=== PATIENT | male | born 1985 | race Caucasian/White ===

== ENCOUNTER 2019-07-23 10:40 | Emergency (ER) | payer SELFPAY ==
--- NOTE | 2019-07-23 12:00 | ED ---
Psychiatric Complaint - HPI Summary HPI Summary: This pt is a 34 y/o male presenting to [facility] via EMS from [facility] for depression. Pt reports he was at the [facility] building and the lady there was asking him a lot of questions regarding his family. He notes it was depressing and made statements about not wanting to live. He states the lack of family is what was depressing. Denies thoughts of SI however reports "just wanting the pain to go away." Pt has been admitted for mental health in the past several years ago. He notes he might benefit from admission today. Pt is a housekeeper. He graduated from high school when he was 17 y/o. He admits to marijuana use and the last time he used was today. - History Of Current Complaint Chief Complaint: EDMentalHealth Hx Obtained From: Patient Onset/Duration: Gradual Onset, Still Present Timing: Constant Severity Currently: Moderate Character: Depressed Aggravating Factor(s): Recent Stress Alleviating Factor(s): Nothing Related History: Positive For: Prior Psychiatric Issues Has Suicidal: Denies: Thoughts, With A Plan Has Homicidal: Denies: Thoughts, With A Plan Recent Stressor(s): getting asked questions about his family - Allergies/Home Medications Allergies/Adverse Reactions: Allergies Allergy/AdvReac Type Severity Reaction Status Date / Time No Known Allergies Allergy Verified 07/23/19 10:50 Home Medications: Home Medications NK [No Home Medications Reported] 07/23/19 [History Confirmed 07/23/19] PMH/Surg Hx/FS Hx/Imm Hx GI History: Reports: Hx Gall Bladder Disease - removed in 2006 Psychiatric History: Reports: Hx Inpatient Treatment, Hx Community Mental Health Tx, Hx Schizophrenia - R/O, Hx Bipolar Disorder - R/O, Hx of Violent Episodes Against Others, Hx Substance Abuse, Other Psychiatric Issues/Disorders Denies: Hx Eating Disorder - Surgical History Surgical History: Yes Surgery Procedure, Year, and Place: gall bladder removed (2006). 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, remembering he was 2-6 years old) Infectious Disease History: No Infectious Disease History: Reports: Hx Tuberculosis - has had positive PPD tests but negative xray Denies: Traveled Outside the [place] in Last 30 Days - Family History Known Family History: Negative: Cardiac Disease - Social History Alcohol Use: Weekly Alcohol Amount: reports "2-4 drinks 3-4 days/week" Substance Use Type: Reports: Marijuana Substance Use Comment - Amount & Last Used: marijuana daily Smoking Status (MU): Current Every Day Smoker Review of Systems Negative: Fever, Chills Negative: Erythema Negative: Sore Throat Negative: Chest Pain Negative: Shortness Of Breath, Cough Negative: Abdominal Pain, Vomiting, Nausea Negative: dysuria, hematuria Negative: Myalgia, Edema Negative: Rash Neurological: Other - NEGATIVE: dizziness Psychological: Other - POSITIVE: SI Positive: Depressed All Other Systems Reviewed And Are Negative: Yes Physical Exam - Summary Physical Exam Summary: Constitutional: Well-developed, Well-nourished, Alert. (-) Distressed Skin: Warm, Dry HENT: Normocephalic; Atraumatic Eyes: Conjunctiva normal Neck: Musculoskeletal ROM normal neck. (-) JVD, (-) Stridor, (-) Tracheal deviation Cardio: Rhythm regular, rate normal, Heart sounds normal; Intact distal pulses; The pedal pulses are 2+ and symmetric. Radial pulses are 2+ and symmetric. (-) Murmur Pulmonary/Chest wall: Effort normal. (-) Respiratory distress, (-) Wheezes, (-) Rales Abd: Soft, (-) Tenderness, (-) Distension, (-) Guarding, (-) Rebound Musculoskeletal: (-) Edema Lymph: (-) Cervical adenopathy Neuro: Alert, Oriented x3 Psych: Tearful Triage Information Reviewed: Yes Vital Signs On Initial Exam: Initial Vitals Temp Pulse Resp BP Pulse Ox 98.2 F 70 18 153/120 98 07/23/19 10:45 07/23/19 10:45 07/23/19 10:45 07/23/19 10:45 07/23/19 10:45 Vital Signs Reviewed: Yes Procedures - Sedation Patient Received Moderate/Deep Sedation with Procedure: No Diagnostics - Vital Signs Vital Signs Temp Pulse Resp BP Pulse Ox 07/23/19 10:45 98.2 F 70 18 153/120 98 - Laboratory Result Diagrams: 07/23/19 11:58 07/23/19 11:58 Lab Statement: Any lab studies that have been ordered have been reviewed, and results considered in the medical decision making process. Course/Dx - Course Assessment/Plan: Pt is a 34 y/o male presenting to [facility] via EMS from [facility] for depression. Pt reports he was at the [facility] building and the lady there was asking him a lot of questions regarding his family. He notes it was depressing and made statements about not wanting to live. He states the lack of family is what was depressing. Denies thoughts of SI however reports "just wanting the pain to go away.". Pt was medically cleared. He had a mental health evaluation and his case was reviewed by Dr. Ferrara, psychiatrist. Dr. Ferrara cleared the pt for discharge with outpatient follow up at [facility]. - Differential Dx/Clinical Impression Provider Diagnosis: Anxiety, Bipolar disorder Discharge ED - Sign-Out/Discharge Documenting (check all that apply): Patient Departure - Discharge home - Discharge Plan Condition: Stable Disposition: HOME Patient Education Materials: Bipolar Disorder (ED), Generalized Anxiety Disorder (ED), Cannabis Abuse (ED) Referrals: No Primary Care Phys,NOPCP [Primary Care Provider] - - Attestation Statements Document Initiated by Scribe: Yes Documenting Scribe: Marybeth Ponce Provider For Whom Scribe is Documenting (Include Credential): Maximo Martinez MD Scribe Attestation: Marybeth Ni, scribed for Maximo Martinez MD on 07/23/19 at 1520. Status of Scribe Document: Ready
[2019-07-23 12:07] LABS: ABS Eosinophils 0.1 10^3/ul (0-0.6); ABS Lymphocytes 1.9 10^3/ul (1.0-4.8); ABS Monocytes 0.5 10^3/ul (0-0.8); ABS Neutrophils 4.8 10^3/ul (1.5-7.7); Eosinophil % 0.8 %; Hematocrit 46 % (42-52); Hemoglobin 15.7 g/dL (14.0-18.0); Lymphocyte % 25.4 %; Mean Corpuscular HGB Conc 34 g/dL (31-36); Mean Corpuscular Hemoglobin 31 pg (27-31); Mean Corpuscular Volume 90 fL (80-94); Mean Platelet Volume 7.2 fL (7.4-10.4); Nucleated Red Blood Cells % 0.1; Platelet Count 262 10^3/uL (150-450); Red Blood Count 5.08 10^6 /uL (4.18-5.48); Red Cell Distribution Width 13 % (10-15); White Blood Count 7.3 10^3/uL (3.5-10.8)
[2019-07-23 12:14] LABS: Urine Appearance Clear; Urine Bacteria Absent (Absent); Urine Bilirubin Negative (Negative); Urine Blood Negative (Negative); Urine Color Yellow; Urine Glucose Negative (Negative); Urine Ketones Negative (Negative); Urine Nitrite Negative (Negative); Urine Protein 1+(30 mg/dL) (Negative); Urine Red Blood Cell Trace(0-2/hpf) (Absent); Urine Specific Gravity 1.023 (1.010-1.030); Urine Urobilinogen Negative (Negative); Urine White Blood Cell Trace(0-5/hpf) (Absent)
[2019-07-23 12:28] LABS: ALT 21 U/L (7-52); AST 20 U/L (13-39); Albumin 4.5 g/dL (3.2-5.2); Albumin/Globulin Ratio 1.8 (1-3); Alkaline Phosphatase 100 U/L (34-104); Anion Gap 6 mmol/L (2-11); BUN/Creatinine Ratio 13.3 (8-20); Blood Urea Nitrogen 11 mg/dL (6-24); CO2 Carbon Dioxide 27 mmol/L (22-32); Calcium 9.3 mg/dL (8.6-10.3); Chloride 106 mmol/L (101-111); EGFR African American 129.1 (>60); EGFR Non-African American 106.7 (>60); Globulin 2.5 g/dL (2-4); Glucose 137 mg/dL (70-100); Potassium 4.4 mmol/L (3.5-5.0); Sodium 139 mmol/L (135-145)
[2019-07-23 12:31] LABS: Urine Benzodiazepine Screen None Detected (None Detect); Urine Opiates Screen None Detected (None Detect)
[2019-07-23 12:46] LABS: Acetaminophen < 15 mcg/mL; Alcohol < 10 mg/dL (<10); Salicylate < 2.50 mg/dL (<30)
[2019-07-23 12:58] LABS: TSH (Thyroid Stimulating Horm) 0.83 mcIU/mL (0.34-5.60)
[2019-07-23 15:22] VITALS: BP 144/97
== END 2019-07-23 16:00 | disposition home or self-care (01) ==
LOC: ED 10:40
DX: F41.9 Anxiety disorder, unspecified (principal); F31.9 Bipolar disorder, unspecified; F17.210 Nicotine dependence, cigarettes, uncomplicated
CPT/HCPCS: 36415; 80053; 80307; 80320; 80329; 81003; 81015; 84443; 85025; 87086; 99284; G0480

== ENCOUNTER 2022-11-04 13:29 | Inpatient (IN) ==
[2022-11-04 14:11] LABS: ABS Lymphocytes 2.4 10^3/ul (1.0-4.8); ABS Monocytes 0.5 10^3/ul (0-0.8); ABS Neutrophils 4.1 10^3/ul (1.5-7.7); Eosinophil % 0.3 %; Hematocrit 45 % (42-52); Hemoglobin 15.4 g/dL (14.0-18.0); Lymphocyte % 34.2 %; Mean Corpuscular HGB Conc 34 g/dL (31-36); Mean Corpuscular Hemoglobin 32 pg (27-31); Mean Corpuscular Volume 92 fL (80-94); Mean Platelet Volume 7.3 fL (7.4-10.4); Nucleated Red Blood Cells % 0.1; Platelet Count 272 10^3/uL (150-450); Red Cell Distribution Width 14 % (10-15); White Blood Count 7.1 10^3/uL (3.5-10.8)
[2022-11-04 14:59] LABS: TSH Ultra Thyroid Stim Horm 1.17 mcIU/mL (0.34-5.60)
[2022-11-04 15:02] LABS: ALT 35 U/L (7-52); AST 33 U/L (13-39); Acetaminophen < 15 mcg/mL; Albumin 4.4 g/dL (3.2-5.2); Albumin/Globulin Ratio 1.6 (1-3); Alcohol, S 136 mg/dL (<13); Alkaline Phosphatase 120 U/L (35-149); Anion Gap 11 mmol/L (2-11); Blood Urea Nitrogen 11 mg/dL (6-24); CO2 Carbon Dioxide 23 mmol/L (22-32); Calcium 9.1 mg/dL (8.6-10.3); Chloride 105 mmol/L (101-111); Creatinine, Serum 0.88 mg/dL (0.67-1.17); Globulin 2.8 g/dL (2-4); Glucose 128 mg/dL (70-100); Potassium 3.8 mmol/L (3.5-5.0); Salicylate < 2.50 mg/dL (<30); Sodium 139 mmol/L (135-145); Total Protein 7.2 g/dL (6.4-8.9); eGFR CKD-EPI 114.3 (>60)
[2022-11-04 17:15] LABS: Urine Benzodiazepine Screen None Detected (None Detect); Urine Cannabinoids Screen Presumptive Positive (None Detect); Urine Opiates Screen None Detected (None Detect)
[2022-11-04] MEDS ORDERED: Haloperidol 5 mg/ml SDV IV/IM 5 MG/ML AMP ONE (18:58)
[2022-11-04] MEDS ORDERED: LORazepam 2 mg VIAL 1 ml ONE (18:58)
[2022-11-04] MEDS ORDERED: LORazepam 2 mg VIAL 1 ml IM ONE (19:08)
[2022-11-04] MEDS ORDERED: Haloperidol 5 mg/ml SDV IV/IM 5 MG/ML AMP IM ONE (19:08)
[2022-11-04] MEDS ORDERED: Lorazepam PYXIS KEY PRN (19:08)
[2022-11-04] MEDS ORDERED: Al Hydrox/Mg Hydrox/Simet LIQ 30 ML UDC PO PRN (20:11)
[2022-11-04] MEDS ORDERED: OLANZapine 5 mg TAB *ODT PO PRN (20:13)
[2022-11-05] MEDS: Nicotine PATCH 21 MG/24 HR PATCH TRANSDERM SCH (10:03)
[2022-11-05] MEDS: Vitamin THERAPEUTIC TAB PO SCH (10:28)
[2022-11-05] MEDS: Vitamin THERAPEUTIC TAB PO ONE ×2 (13:15→14:05)
[2022-11-05] MEDS ORDERED: Nicotine PATCH 21 MG/24 HR PATCH TRANSDERM ONE (14:00)
[2022-11-06] MEDS: Vitamin THERAPEUTIC TAB PO SCH (09:08)
[2022-11-06] MEDS: Nicotine PATCH 21 MG/24 HR PATCH TRANSDERM SCH (09:08)
[2022-11-06] MEDS: Nicotine GUM 2MG FRUIT FLAVOR PO PRN ×4 (09:09→22:35)
[2022-11-07 08:31] LABS: HDL Cholesterol 49.7 mg/dL
[2022-11-07] MEDS: Nicotine PATCH 21 MG/24 HR PATCH TRANSDERM SCH (08:49)
[2022-11-07] MEDS: Nicotine GUM 2MG FRUIT FLAVOR PO PRN ×5 (08:50→20:41)
[2022-11-07] MEDS: Vitamin THERAPEUTIC TAB PO SCH (08:50)
[2022-11-07 23:18] VITALS: BP 142/108
[2022-11-08] MEDS: Vitamin THERAPEUTIC TAB PO SCH (09:07)
[2022-11-08] MEDS: Nicotine PATCH 21 MG/24 HR PATCH TRANSDERM SCH (09:08)
[2022-11-08] MEDS: Nicotine GUM 2MG FRUIT FLAVOR PO PRN (10:06)
[2022-11-09] MEDS: Vitamin THERAPEUTIC TAB PO SCH (08:27)
[2022-11-09] MEDS: Nicotine GUM 2MG FRUIT FLAVOR PO PRN ×2 (08:27→10:51)
[2022-11-09] MEDS: Nicotine PATCH 21 MG/24 HR PATCH TRANSDERM SCH (10:10)
== END 2022-11-09 13:39 | disposition home or self-care (01) | DRG 750 ==
LOC: ED 13:29 → EDHOLD 20:12 → BSU 20:49
PROVIDERS: ADMIT Psychiatry & Neurology Psychiatry; ATTEND Psychiatry & Neurology Psychiatry

== ENCOUNTER 2023-05-04 13:13 | Inpatient (IN) ==
[2023-05-04 14:20] LABS: ABS Eosinophils 0.1 10^3/uL (0.0-0.5); ABS Lymphocytes 2.3 10^3/uL (1.0-4.8); ABS Monocytes 0.8 10^3/uL (0.0-1.1); ABS Nucleated RBC 0.01 10^3/ul; Eosinophil % 1.2 %; Hematocrit 42.1 % (38-53); Hemoglobin 14.6 g/dL (13.2-16.3); Lymphocyte % 28.4 %; Mean Corpuscular Hemoglobin 31.4 pg (27-33); Mean Corpuscular Hgb Conc 34.7 g/dL (31-36); Mean Corpuscular Volume 90.6 fL (80-97); Mean Platelet Volume 7.9 fL (7.5-11.2); Nucleated Red Blood Cells % 0.1 /100 WBC (0.0-0.4); Platelet Count 255 10^3/uL (150-450); Red Blood Count 4.64 10^6/uL (4.06-5.63); Red Cell Distribution Width 13.2 % (12-17); White Blood Count 8.3 10^3/uL (3.6-10.2)
[2023-05-04 14:59] LABS: ALT 20 U/L (7-52); AST 20 U/L (13-39); Albumin 4.1 g/dL (3.2-5.2); Albumin/Globulin Ratio 1.5 (1-3); Alkaline Phosphatase 86 U/L (35-149); Anion Gap 6 mmol/L (2-16); Blood Urea Nitrogen 16 mg/dL (6-24); CO2 Carbon Dioxide 27 mmol/L (22-32); Calcium 9.1 mg/dL (8.6-10.3); Chloride 107 mmol/L (101-111); Creatinine, Serum 0.92 mg/dL (0.67-1.17); Globulin 2.8 g/dL (2-4); Glucose 119 mg/dL (70-100); Potassium 3.9 mmol/L (3.5-5.0); Sodium 140 mmol/L (135-145); Total Protein 6.9 g/dL (6.4-8.9); eGFR CKD-EPI 109.9 (>60)
[2023-05-04 15:02] LABS: Acetaminophen < 15 mcg/mL; Alcohol, S < 13 mg/dL (<13); Salicylate < 2.50 mg/dL (<30)
[2023-05-04 15:07] LABS: TSH Ultra Thyroid Stim Horm 1.16 mcIU/mL (0.34-5.60)
[2023-05-04] MEDS ORDERED: Al Hydrox/Mg Hydrox/Simet LIQ 30 ML UDC PO PRN (22:17)
[2023-05-04] MEDS ORDERED: OLANZapine 10 mg TAB*ODT PO PRN (22:18)
[2023-05-04] MEDS ORDERED: Nicotine GUM 2MG FRUIT FLAVOR PO PRN (23:00)
[2023-05-05] MEDS: Nicotine PATCH 21 MG/24 HR PATCH TRANSDERM SCH (11:12)
[2023-05-05] MEDS: Vitamin THERAPEUTIC TAB PO SCH (11:12)
[2023-05-06 07:55] LABS: HDL Cholesterol 36.2 mg/dL
[2023-05-06] MEDS: Vitamin THERAPEUTIC TAB PO SCH (09:03)
[2023-05-06] MEDS: Nicotine PATCH 21 MG/24 HR PATCH TRANSDERM SCH (09:03)
[2023-05-07] MEDS: Vitamin THERAPEUTIC TAB PO SCH (11:59)
[2023-05-07] MEDS: Nicotine PATCH 21 MG/24 HR PATCH TRANSDERM SCH (11:59)
[2023-05-08] MEDS: Vitamin THERAPEUTIC TAB PO SCH (11:15)
[2023-05-08] MEDS: Nicotine PATCH 21 MG/24 HR PATCH TRANSDERM SCH (11:15)
[2023-05-09] MEDS: Nicotine PATCH 21 MG/24 HR PATCH TRANSDERM SCH (08:27)
[2023-05-09] MEDS: Vitamin THERAPEUTIC TAB PO SCH (08:28)
[2023-05-10] MEDS: Nicotine PATCH 21 MG/24 HR PATCH TRANSDERM SCH (08:36)
[2023-05-10] MEDS: Vitamin THERAPEUTIC TAB PO SCH (08:36)
[2023-05-11] MEDS: Nicotine PATCH 21 MG/24 HR PATCH TRANSDERM SCH (08:16)
[2023-05-11] MEDS: Vitamin THERAPEUTIC TAB PO SCH (08:16)
[2023-05-11 09:22] VITALS: BP 129/80
== END 2023-05-11 10:30 | disposition home or self-care (01) | DRG 750 ==
LOC: ED 13:13 → EDHOLD 21:56 → BSU 05-05 00:01
PROVIDERS: ADMIT Psychiatry & Neurology Psychiatry; ATTEND Psychiatry & Neurology Psychiatry

== ENCOUNTER 2023-06-08 12:28 | Inpatient (IN) ==
[2023-06-08] MEDS ORDERED: Al Hydrox/Mg Hydrox/Simet LIQ 30 ML UDC PO PRN (15:29)
[2023-06-08] MEDS ORDERED: Midazolam 5 mg/ml concentrated 5 mg/ml 1 ml VIAL INJ ONE (16:04)
[2023-06-08] MEDS ORDERED: Droperidol 5 MG/2 ML 2 ML VIAL IM ONE (16:21)
[2023-06-08 17:04] LABS: ABS Lymphocytes 1.5 10^3/uL (1.0-4.8); ABS Monocytes 0.4 10^3/uL (0.0-1.1); ABS Neutrophils 5.8 10^3/uL (1.5-7.6); ABS Nucleated RBC 0.01 10^3/ul; Eosinophil % 0.3 %; Hematocrit 43.7 % (38-53); Hemoglobin 15.3 g/dL (13.2-16.3); Mean Corpuscular Hemoglobin 31.3 pg (27-33); Mean Corpuscular Volume 89.4 fL (80-97); Mean Platelet Volume 7.4 fL (7.5-11.2); Nucleated Red Blood Cells % 0.1 /100 WBC (0.0-0.4); Platelet Count 266 10^3/uL (150-450); Red Blood Count 4.88 10^6/uL (4.06-5.63); Red Cell Distribution Width 13.5 % (12-17); White Blood Count 7.7 10^3/uL (3.6-10.2)
[2023-06-08 17:18] LABS: Albumin 4.4 g/dL (3.2-5.2); Anion Gap 3 mmol/L (2-16); CO2 Carbon Dioxide 28 mmol/L (22-32); Calcium 9.1 mg/dL (8.6-10.3); Chloride 107 mmol/L (101-111); Potassium 3.8 mmol/L (3.5-5.0); Sodium 138 mmol/L (135-145)
[2023-06-08 17:24] LABS: ALT 25 U/L (7-52); AST 25 U/L (13-39); Albumin/Globulin Ratio 1.7 (1-3); Alkaline Phosphatase 93 U/L (35-149); Blood Urea Nitrogen 14 mg/dL (6-24); Creatinine, Serum 0.77 mg/dL (0.67-1.17); Globulin 2.6 g/dL (2-4); Glucose 123 mg/dL (70-100); eGFR CKD-EPI 118.3 (>60)
[2023-06-08 17:39] LABS: Acetaminophen < 15 mcg/mL; Alcohol, S < 13 mg/dL (<13); Salicylate < 2.50 mg/dL (<30)
[2023-06-08 17:48] LABS: TSH Ultra Thyroid Stim Horm 0.65 mcIU/mL (0.34-5.60)
[2023-06-10] MEDS: OLANZapine 5 mg TAB *ODT PO SCH (20:48)
[2023-06-11] MEDS: OLANZapine 5 mg TAB *ODT PO SCH (21:37)
[2023-06-12] MEDS: OLANZapine 5 mg TAB *ODT PO SCH (21:55)
[2023-06-13] MEDS: OLANZapine 5 mg TAB *ODT PO SCH (20:26)
[2023-06-14] MEDS: OLANZapine 5 mg TAB *ODT PO SCH (20:11)
[2023-06-15] MEDS ORDERED: ARIPiprazole LAUROXIL INITIO 675 MG/2.4 ML SYRINGE IM ONE (14:22)
[2023-06-15] MEDS ORDERED: ARIPiprazole LAUROXIL 662 MG/2.4 ML SYRINGE IM ONE (14:22)
[2023-06-15] MEDS: Nicotine GUM 4MG FRUIT FLAVOR PO PRN (18:11)
[2023-06-17] MEDS: Nicotine GUM 4MG FRUIT FLAVOR PO PRN ×2 (08:56→17:41)
[2023-06-18] MEDS: Nicotine GUM 4MG FRUIT FLAVOR PO PRN (15:42)
[2023-06-19] MEDS: Nicotine GUM 4MG FRUIT FLAVOR PO PRN (17:24)
[2023-06-20] MEDS: Nicotine GUM 4MG FRUIT FLAVOR PO PRN ×5 (08:35→20:10)
[2023-06-21] MEDS: Nicotine GUM 4MG FRUIT FLAVOR PO PRN ×4 (08:49→20:22)
[2023-06-22] MEDS: Nicotine GUM 4MG FRUIT FLAVOR PO PRN ×4 (09:29→19:18)
[2023-06-22 09:53] VITALS: BP 155/93
[2023-06-23] MEDS: Nicotine GUM 4MG FRUIT FLAVOR PO PRN ×4 (08:22→19:52)
[2023-06-24] MEDS: Nicotine GUM 4MG FRUIT FLAVOR PO PRN ×5 (08:47→20:55)
[2023-06-25] MEDS: Nicotine GUM 4MG FRUIT FLAVOR PO PRN ×5 (08:51→20:46)
[2023-06-26] MEDS: Nicotine GUM 4MG FRUIT FLAVOR PO PRN ×3 (11:43→20:56)
[2023-06-27] MEDS: Nicotine GUM 4MG FRUIT FLAVOR PO PRN ×3 (08:16→17:53)
[2023-06-28] MEDS: Nicotine GUM 4MG FRUIT FLAVOR PO PRN (07:28)
[2023-06-29] MEDS: Nicotine GUM 4MG FRUIT FLAVOR PO PRN (08:39)
[2023-07-15] MEDS ORDERED: ARIPiprazole LAUROXIL 662 MG/2.4 ML SYRINGE IM ONE (08:11)
== END 2023-06-29 09:35 | DRG 750 ==
LOC: ED 12:28 → BSU 15:29 → EDHOLD 15:29 → BSU 16:40
PROVIDERS: ADMIT Psychiatry & Neurology Psychiatry; ATTEND Psychiatry & Neurology Psychiatry

== ENCOUNTER 2024-03-17 01:23 | Inpatient (IN) ==
[2024-03-17] MEDS: Droperidol 5 MG/2 ML 2 ML VIAL IM ONE (01:53)
[2024-03-17] MEDS: chlorproMAZINE 25 MG/ML 2 ML (50 MG) IM ONE (10:43)
[2024-03-22] MEDS: LORazepam 2 MG/ML 1 mL Syringe ONE (11:10)
[2024-03-22] MEDS: ARIPIPRAZOLE 960 MG/3.2 ML IM ONE (11:55)
[2024-03-27] MEDS: Nicotine GUM 4MG FRUIT FLAVOR PO PRN (16:10)
[2024-03-29] MEDS: Al Hydrox/Mg Hydrox/Simet LIQ 30 ML UDC ONE (19:15)
[2024-03-29] MEDS ORDERED: Al Hydrox/Mg Hydrox/Simet LIQ 30 ML UDC PO PRN (23:06)
[2024-04-07] MEDS: Nicotine Lozenge mini 2 MG LOZNG.MINI MT PRN (18:48)
[2024-04-19 07:57] LABS: ABS Basophils 0.1 10^3/uL (0.0-0.1); ABS Eosinophils 0.3 10^3/uL (0.0-0.5); ABS Lymphocytes 2.4 10^3/uL (1.0-4.8); ABS Neutrophils 4.7 10^3/uL (1.5-7.6); Eosinophil % 3.7 %; Hemoglobin 14.9 g/dL (13.2-16.3); Lymphocyte % 28.7 %; Mean Corpuscular Hemoglobin 31.8 pg (27-33); Mean Corpuscular Hgb Conc 34.6 g/dL (31-36); Mean Corpuscular Volume 91.8 fL (80-97); Mean Platelet Volume 7.2 fL (7.5-11.2); Platelet Count 287 10^3/uL (150-450); Red Blood Count 4.68 10^6/uL (4.06-5.63); Red Cell Distribution Width 13.7 % (12-17); White Blood Count 8.5 10^3/uL (3.6-10.2)
[2024-04-19 08:16] LABS: Albumin 3.8 g/dL (3.2-5.2); Albumin/Globulin Ratio 1.5 (1-3); Calcium 8.8 mg/dL (8.6-10.3); Creatinine, Serum 0.93 mg/dL (0.67-1.17); Globulin 2.5 g/dL (2-4); HDL Cholesterol 47.6 mg/dL; Potassium 4.9 mmol/L (3.5-5.0); Total Bilirubin 0.4 mg/dL (0.2-1.0); Total Protein 6.3 g/dL (6.4-8.9); eGFR CKD-EPI 107.8 (>60)
[2024-04-19 08:30] LABS: TSH Ultra Thyroid Stim Horm 2.17 mcIU/mL (0.34-5.60)
[2024-05-02 09:39] VITALS: BP 154/80
== END 2024-05-02 09:45 | DRG 750 ==
LOC: ED 01:23 → EDHOLD 08:33 → BSU 09:26
PROVIDERS: ADMIT Student in an Organized Health Care Education/Training Program; ATTEND Psychiatry & Neurology Psychiatry